=== PATIENT | male | born 1935 | race Caucasian/White ===

== ENCOUNTER 2017-10-19 09:27 | Inpatient (IN) | payer MEDICARE ==
[~2017-10-19] VITALS: Ht 177.8 cm; Wt 73.3 kg
[~2017-10-19 09:27] MED LIST: AMLO2.5T2 PO; ASPI-496 PO; HYDR-3341 PO; OXYC-302 PO
[2017-10-19] MEDS ORDERED: DILTIAZEM 5 MG/ML, 5ML IVPush STA (09:44)
[2017-10-19] MEDS ORDERED: DILTIAZEM 5 MG/ML, 5ML ONE (09:52)
[2017-10-19] MEDS ORDERED: ASPIRIN 81 MG TABLET CHEW ONE (09:52)
[2017-10-19] MEDS ORDERED: HEPARIN 25,000 UNITS/500ML PMX 500 ML ONE (09:54)
[2017-10-19] MEDS ORDERED: HEPARIN 5,000 UNITS/ML, 1ML ONE ×2 (09:54→11:40)
[2017-10-19] MEDS ORDERED: SODIUM CHLORIDE FLUSH 10ML SYR IVF ONE (10:00)
[2017-10-19] MEDS ORDERED: HEPARIN 5,000 UNITS/ML, 1ML IV PRN (10:00)
[2017-10-19] MEDS ORDERED: HEPARIN 5,000 UNITS/ML, 1ML IV ONE (10:00)
[2017-10-19] MEDS ORDERED: HEPARIN 25,000 UNITS/500ML PMX 500 ML IV PRN ×2 (10:00→16:00)
[2017-10-19 10:04] LABS: BASOPHILS # (AUTO) 0.09 x10^3/uL (0-0.1); BASOPHILS % (AUTO) 1 % (0-1); EOSINOPHILS # (AUTO) 0.09 x10^3/uL (0-0.4); EOSINOPHILS % (AUTO) 1 % (1-7); LYMPHOCYTES # (AUTO) 2.04 x10^3/uL (1-3.4); LYMPHOCYTES % (AUTO) 19 % (22-44); MD NO; MEAN CORPUSCULAR HEMOGLOBIN 28.9 pg (27.5-34.5); MEAN CORPUSCULAR HGB CONC 33.9 g/dL (33.2-36.2); MEAN CORPUSCULAR VOLUME 85.3 fL (81-97); MEAN PLATELET VOLUME 7.4 fL (7.4-10.4); MONOCYTES # (AUTO) 0.54 x10^3/uL (0.2-0.8); MONOCYTES % (AUTO) 5 % (2-9); NEUTROPHILS # (AUTO) 7.85 x10^3/uL (1.8-6.8); NEUTROPHILS % (AUTO) 74 % (42-75); PLATELET COUNT 277 x10^3/uL (130-400); RED BLOOD COUNT 5.32 x10^6/uL (4.38-5.82); RED CELL DISTRIBUTION WIDTH 13.2 % (9.4-14.8)
[2017-10-19 10:09] LABS: INTERNATIONAL NORMALIZED RATIO 1.03 (0.93-1.1); PROTHROMBIN TIME 10.6 Seconds (9.6-11.5)
[2017-10-19 10:20] LABS: ALBUMIN 3.9 g/dL (3.4-5.0); ANION GAP 8 mmol/L (5-15); CALCIUM 8.8 mg/dL (8.5-10.1); CHLORIDE 108 mmol/L (98-107)
[2017-10-19 10:25] LABS: ALANINE AMINOTRANSFERASE 24 U/L (12-78); ALKALINE PHOSPHATASE 52 U/L (45-117); BILIRUBIN,TOTAL 0.8 mg/dL (0.2-1.0); CREATININE 1.19 mg/dL (0.7-1.3); TOTAL PROTEIN 7.2 g/dL (6.4-8.2); TROPONIN I < 0.015 ng/mL (0.000-0.045)
[2017-10-19] MEDS ORDERED: DIGOXIN 0.25 MG/ML, 2ML IVPush ONE (11:00)
[2017-10-19] MEDS ORDERED: DIGOXIN 0.25 MG/ML, 2ML ONE (11:24)
[2017-10-19] MEDS ORDERED: UNKNOWN BP MED PO (11:33)
[2017-10-19 12:10] VITALS: BP 136/60
[2017-10-19] MEDS ORDERED: TEMAZEPAM 15 MG CAPSULE PO PRN (12:30)
[2017-10-19] MEDS ORDERED: morphine SULFATE 10 MG/ML, 1ML IVPush PRN (12:30)
[2017-10-19] MEDS ORDERED: ACETAMINOPHEN 325 MG TABLET PO PRN (12:30)
[2017-10-19] MEDS ORDERED: HYDROcodone/APAP 5/325 TABLET PO PRN (12:30)
[2017-10-19] MEDS ORDERED: hydrALAzine 20 MG/ML, 1ML IVPush PRN (12:30)
[2017-10-19] MEDS ORDERED: ONDANSETRON 2MG/ML, 2ML IVPush PRN (12:30)
[2017-10-19 12:37] VITALS: BP 157/66
[2017-10-19] MEDS: SODIUM CHLORIDE 0.9% 1,000 ML IV SCH (14:21)
[2017-10-19 17:20] VITALS: BP 152/66
[2017-10-19] MEDS: METOPROLOL TARTRATE 25 MG TABLET PO SCH (17:21)
[2017-10-19 18:11] LABS: MICROSCOPIC NOT IND
[2017-10-19 18:17] LABS: CULTURE INDICATED? NO
[2017-10-19 19:17] VITALS: BP 131/58
[2017-10-19 22:28] LABS: TROPONIN I 0.177 ng/mL (0.000-0.045)
[2017-10-20] MEDS: SODIUM CHLORIDE 0.9% 1,000 ML IV SCH ×2 (00:31→10:00)
[2017-10-20 01:48] VITALS: BP 125/62
[2017-10-20 05:23] LABS: CHLORIDE 114 mmol/L (98-107)
[2017-10-20 05:24] LABS: BASOPHILS # (AUTO) 0.04 x10^3/uL (0-0.1); BASOPHILS % (AUTO) 1 % (0-1); EOSINOPHILS % (AUTO) 4 % (1-7); LYMPHOCYTES # (AUTO) 1.64 x10^3/uL (1-3.4); LYMPHOCYTES % (AUTO) 28 % (22-44); MD NO; MEAN CORPUSCULAR HEMOGLOBIN 29.1 pg (27.5-34.5); MEAN CORPUSCULAR HGB CONC 33.6 g/dL (33.2-36.2); MEAN CORPUSCULAR VOLUME 86.5 fL (81-97); MEAN PLATELET VOLUME 7.5 fL (7.4-10.4); MONOCYTES # (AUTO) 0.43 x10^3/uL (0.2-0.8); MONOCYTES % (AUTO) 8 % (2-9); NEUTROPHILS # (AUTO) 3.47 x10^3/uL (1.8-6.8); NEUTROPHILS % (AUTO) 60 % (42-75); PLATELET COUNT 183 x10^3/uL (130-400); RED CELL DISTRIBUTION WIDTH 13.7 % (9.4-14.8)
[2017-10-20 05:32] LABS: ALANINE AMINOTRANSFERASE 18 U/L (12-78); ALBUMIN 2.9 g/dL (3.4-5.0); ALKALINE PHOSPHATASE 42 U/L (45-117); ANION GAP 6 mmol/L (5-15); BILIRUBIN,TOTAL 0.7 mg/dL (0.2-1.0); CALCIUM 7.9 mg/dL (8.5-10.1); CREATININE 0.91 mg/dL (0.7-1.3); TOTAL PROTEIN 5.5 g/dL (6.4-8.2); TROPONIN I 0.126 ng/mL (0.000-0.045)
[2017-10-20] MEDS ORDERED: APIXABAN 5 MG TABLET ONE (05:49)
[2017-10-20] MEDS: METOPROLOL TARTRATE 25 MG TABLET PO SCH (06:00)
[2017-10-20] MEDS: APIXABAN 5 MG TABLET PO SCH ×2 (07:00→19:03)
[2017-10-20 07:54] LABS: LDL/HDL RATIO 1.8 (0.5-3.0)
[2017-10-20] MEDS ORDERED: REGADENOSON 0.4 MG/5 ML SYRINGE ONE (08:08)
[2017-10-20 08:30] VITALS: BP 126/70
[2017-10-20 14:42] VITALS: BP 145/68
[2017-10-20] MEDS ORDERED: APIX5TAB PO (16:48)
[2017-10-20] MEDS ORDERED: METOPROLOL TARTRATE 25 MG TABLET PO SCH (18:00)
[2017-10-20] MEDS ORDERED: SIMV20TA PO (18:34)
== END 2017-10-20 19:21 | disposition home or self-care (01) | DRG 309 ==
LOC: ED 10:17 → EDIP 10:31 → 5SO 11:58
PROVIDERS: ADMIT Internal Medicine; ATTEND Internal Medicine
DX: I48.92 Unspecified atrial flutter (principal); D68.59 Other primary thrombophilia; I48.0 Paroxysmal atrial fibrillation; E78.5 Hyperlipidemia, unspecified; I10 Essential (primary) hypertension; F17.200 Nicotine dependence, unspecified, uncomplicated; Z90.49 Acquired absence of other specified parts of digestive tract; Z88.0 Allergy status to penicillin
CPT/HCPCS: 36415; 71045; 78452; 80053; 80061; 81003; 83735; 83880; 84100; 84443; 84484; 85025; 85520; 85610; 93005; 93017; 93306; 96374; 96375; J1644; J2785; A9502; C9898; J1160; J7030

== ENCOUNTER 2018-02-07 13:11 | Emergency (ER) | payer MEDICARE ==
[~2018-02-07] VITALS: Ht 172.7 cm; Wt 69.3 kg
[~2018-02-07 13:11] MED LIST changes: +APIX5TAB PO; +SIMV20TA PO; +UNKNOWN BP MED PO
[2018-02-07] MEDS ORDERED: AMLO5TAB2 PO (14:33)
[2018-02-07] MEDS ORDERED: PROPOFOL 10 MG/ML, 20ML ONE ×2 (14:35→14:48)
[2018-02-07] MEDS ORDERED: SODIUM CHLORIDE FLUSH 10ML SYR IVF ONE (15:00)
[2018-02-07 16:19] VITALS: BP 169/70
== END 2018-02-07 16:22 | disposition home or self-care (01) ==
LOC: ED 13:57
DX: T18.128A Food in esophagus causing other injury, initial encounter (principal); I10 Essential (primary) hypertension; I48.91 Unspecified atrial fibrillation; Z88.0 Allergy status to penicillin; X58.XXXA Exposure to other specified factors, initial encounter; Y93.89 Activity, other specified; Y92.89 Other specified places as the place of occurrence of the external cause; Y99.8 Other external cause status
CPT/HCPCS: 43247; 71045; 99152; 99285; C1725